=== PATIENT | female | born 1960 | race Two or more races ===

== ENCOUNTER 2024-10-15 12:39 | Emergency (ER) | payer OTHER ==
[~2024-10-15] VITALS: Ht 172.7 cm; Wt 73.5 kg
[2024-10-15 12:45] VITALS: BP 100/66; TEMP 97.9
[2024-10-15] MEDS ORDERED: KETOROLAC TROMETHAMINE 15 MG/ML VIAL ONE (13:31)
[2024-10-15] MEDS ORDERED: HYDROCODONE/APAP 5/325MG TABLET ONE (13:32)
[2024-10-15] MEDS ORDERED: IBUP-1955 PO (13:36)
[2024-10-15] MEDS ORDERED: HYDR-4303 PO (13:36)
[2024-10-15] MEDS: HYDROCODONE/APAP 5/325MG TABLET PO ONE (13:42)
[2024-10-15] MEDS: KETOROLAC TROMETHAMINE 15 MG/ML VIAL IM ONE (13:42)
[2024-10-15 14:35] VITALS: O2SAT 99
== END 2024-10-15 14:40 | disposition home or self-care (01) ==
LOC: ER 12:45
DX: S52.592A Other fractures of lower end of left radius, initial encounter for closed fracture (principal); S52.692A Other fracture of lower end of left ulna, initial encounter for closed fracture; W18.39XA Other fall on same level, initial encounter; Y93.89 Activity, other specified; Y92.89 Other specified places as the place of occurrence of the external cause; Y99.8 Other external cause status
CPT/HCPCS: 29125; 73100; 96372; 99283; J1885